=== PATIENT | female | born 1990 | race Caucasian/White ===

== ENCOUNTER 2020-07-19 09:26 | Outpatient (CLI) | payer BC, SELFPAY ==
--- NOTE | ~2020-07-19 | US_ITS ---
US abdomen complete DATE: 07/19/2020 09:51 INDICATION: Postprandial abdominal pain TECHNIQUE: Real-time imaging and Doppler analysis of the abdomen COMPARISON: None FINDINGS: No hepatic or pancreatic space-occupying mass lesion is evident. Normal hepatopedal portal venous flow direction. There is extensive shadowing from filling defects of the gallbladder consistent with cholelithiasis. Gallbladder wall thickness is within normal range. Negative sonographic Walker's sign. The common genaro e duct measures 4 mm. Normal splenic size. The left kidney measures 14 cm length. No left renal mass lesion or hydronephrosis. 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 Normal caliber of the abdominal aorta. The inferi or vena cava is unremarkable. IMPRESSION: Cholelithiasis Congenital absence of right kidney is reported Reviewed, dictated and finalized at [facility]. Reviewed, dictated and finalized at [facility].
== END 2020-07-19 09:27 | disposition home or self-care (01) ==
LOC: ANHIMG 09:29
PROVIDERS: PCP Family Medicine; Visit Provider Family Medicine
DX: K80.20 Calculus of gallbladder without cholecystitis without obstruction (principal)
CPT/HCPCS: 76700

== ENCOUNTER 2022-08-23 16:41 | Emergency (ER) | payer BC, SELFPAY ==
[2022-08-23 16:43] VITALS: BP 140/90; PULSE 115; RESP 18; TEMP 36.8; O2SAT 100
--- NOTE | 2022-08-23 17:24 | ED.GENADULT ---
HPI - General Adult General Chief complaint: Headache Stated complaint: headaches Time Seen by Provider: 08/23/22 16:59 Source: patient Mode of arrival: ambulatory Limitations: no limitations History of Present Illness HPI narrative: This is a 31 year old female with PMH of migraine who presents to the ED with chief complaint of headache x 1 week. Pt states the pain is bilateral and frontal. No sudden onset. States pain initially began after she woke up in bed. No worsening with exertion or position. Reports has been low grade and intermittent since onset. Minimal relief with excedrin. Denies fevers, chills, neck pain, blurry or double vision, abdominal pain, sore throat, cough, CP, SOB, urinary sxs. Related Data Allergies Allergy/AdvReac Type Severity Reaction Status Date / Time No Known Allergies Allergy Verified 08/23/22 16:42 Review of Systems Review of Systems: CONSTITUTIONAL: Denies fever, chills, or sweats. EYES: Denies visual changes, redness, or discharge. ENT: Denies rhinorrhea, congestion, sore throat, or otalgia. CARDIOVASCULAR: Denies chest pain, palpitations, or edema. RESPIRATORY: Denies cough or dyspnea. GASTROINTESTINAL: Denies abdominal pain, nausea, vomiting, or diarrhea. GENITOURINARY: Denies dysuria or hematuria. SKIN: Denies rash or itching. MUSCULOSKELETAL: Denies back pain, joint pain, or myalgia. NEUROLOGIC: See HPI PSYCHIATRIC: Denies anxiety or depression. COUNTS INCLUDE 234 BEDS AT THE [facility] Past Medical History Medical History Cholelithiasis Surgical History Surgical History History of cholecystectomy Family History Family History Mother Family history of thyroid disease Grandparent Family history of lung cancer Social History Social History Smoking status: Never smoker Second hand tobacco smoke exposure: No Alcohol intake: never Substance use: never Substance use type: does not use Lack of Transportation: No Lack of Food: Never True Current Housing: I Have Housing Concerned About Future Housing: No Difficulty Paying Gas/Electric Bills: No Difficulty Paying for Meds: No Currently Unemployed: No Education: High School Diploma/GED Difficulty w/ Childcare or Family Care: No Living arrangements: with family Occupation/Education: occupation Gender identity (if verbalized by the patient): Female Sexual Orientation (if Verbalized by the Patient): Straight or Heterosexual Spiritual care concerns: No Agree to blood products: Yes Exam Narrative: GENERAL: Well-appearing, well-nourished, and in no acute distress. HEAD: Normocephalic, atraumatic. Mild tenderness to the bilateral frontal scalp. EYES: PERRLA and EOMI. ENT: Nares clear, no rhinorrhea or epistaxis. Mucous membranes moist. Oropharynx without tonsillar hypertrophy exudate or other lesions. NECK: Supple. No adenopathy or masses. CHEST: No respiratory distress. Clear to auscultation. No wheezes rales or rhonchi HEART: Regular rate and rhythm. No murmur heard. Normal peripheral pulses. ABDOMEN: Soft, nontender, nondistended, normal active bowel sounds. MSK: Normal range of motion. No edema. SKIN: Warm, dry, no rash. NEURO: Alert and oriented x3. No focal deficits. Cranial nerves II through XII intact. PSYCH: Normal mood and affect. Course Course Emergency Course: Reevaluation: Patient feeling much better and is ready to go home. Vital Signs Vital signs: Vital Signs Temperature 98.3 F 08/23/22 16:43 Pulse Rate 115 H 08/23/22 16:43 Respiratory Rate 18 08/23/22 16:43 Blood Pressure 140/90 08/23/22 16:43 Pulse Oximetry 100 08/23/22 16:43 Oxygen Delivery Room Air 08/23/22 16:43 Temperature 98.3 F 08/23/22 16:43 Pulse Rate 83 08/23/22 18:31 Re
[2022-08-23] MEDS: SODIUM CHLORIDE 0.9% IV 1,000 ML 999 ML IV CONT (17:35)
[2022-08-23] MEDS: PROCHLORPERAZINE EDISYLATE 10 MG/2 ML VIAL IV PUSH (17:36)
[2022-08-23] MEDS: diphenhydrAMINE HCl INJ 50 MG/ML VIAL 25 MG IV PUSH (17:36)
[2022-08-23] MEDS: KETOROLAC 15 MG/ML VIAL (*BKC) IV PUSH (17:36)
[2022-08-23 17:40] LABS: Basophils Percent Auto 0.3 % (0.2-1.2); Eosinophils Absolute Auto 0.1 K/mm3 (0-0.3); Eosinophils Percent Auto 1.1 % (0-4.4); Hematocrit 38.1 % (37.0-47.0); Hemoglobin 12.5 g/dL (12.0-15.0); Immature Granulocyte Absolute 0.03 K/mm3 (0.00-0.031); Immature Granulocyte Percent A 0.3 % (0-0.5); Lymphocytes Absolute Auto 2.43 K/mm3 (0.9-3.2); Lymphocytes Percent Auto 26.3 % (18.3-44.2); Mean Corpuscular HGB Conc 32.8 g/dl (32-36); Mean Corpuscular Hemoglobin 29.3 pg (26-34); Mean Corpuscular Volume 89.4 fl (80-100); Monocytes Absolute Auto 0.7 K/mm3 (0.1-0.6); Monocytes Percent Auto 7.1 % (2.6-8.5); Neutrophils Percent Auto 64.9 % (45.5-73.1); Platelet Count Result 280 k/mm3 (150-375); Red Blood Count 4.26 M/mm3 (4.2-5.4); Red Cell Distribution Width 13.6 % (11.5-14.5); White Blood Count 9.2 K/mm3 (4.5-10.0)
[2022-08-23 17:50] LABS: Alanine Aminotransferase 37 U/L (6-35); Albumin Level 4.5 g/dL (3.5-5.1); Alkaline Phosphatase 70 U/L (38-126); Anion Gap 9 mmol/L (8-16); Aspartate Amino Transferase 41 U/L (14-36); Bilirubin,Total 0.4 mg/dL (0.2-1.3); Blood Urea Nitrogen 6 mg/dL (7-17); Calcium 8.7 mg/dL (8.4-10.2); Carbon Dioxide 29 mmol/L (22-30); Chloride 101 mmol/L (98-107); Estimated CRCL calculation 120 ml/min; Estimated Glomerular Filt Rate > 60; Glucose 110 mg/dL (65-110); Potassium 3.9 mmol/L (3.4-5.0); Sodium 139 mmol/L (137-145)
[2022-08-23 18:31] VITALS: BP 124/83; PULSE 83; O2SAT 100
== END 2022-08-23 18:38 | disposition home or self-care (01) ==
PROVIDERS: Emergency Provider Physician Assistant; PCP Family Medicine
DX: G43.909 Migraine, unspecified, not intractable, without status migrainosus (principal); Z90.49 Acquired absence of other specified parts of digestive tract
CPT/HCPCS: 36415; 80053; 81025; 85025; 96361; 96374; 96375; 99284; J0780; J1200; J1885; J7030

== ENCOUNTER 2023-07-31 08:10 | Day surgery (SDC) | payer BC, SELFPAY ==
[2023-07-18 13:13] VITALS: BMI 29.6
[2023-07-31 11:11] VITALS: BP 133/94; PULSE 78; RESP 16; TEMP 36.4; O2SAT 100; BMI 31.1
--- NOTE | 2023-07-31 11:12 | WPDANESEPPF ---
Anes - Initial Pre Proc Eval Procedure: Operation Date: 07/31/23 12:00 Proposed Procedures p Colonoscopy - Vinh Pedroza MD Date/Time: 07/31/23 11:12 Surgeon: Vinh Pedroza MD Pre Op Diagnosis: RLQP, Melena, CIBH, Other fecal abnormalities Patient Data Age: 32 Gender: F Height: 1.75 m Weight: 91 kg Allergies Allergy/AdvReac Type Severity Reaction Status Date / Time venom-wasp Allergy Anaphylaxis Verified 07/31/23 11:10 Home Medications Medication Instructions Recorded Confirmed Type ergocalciferol (vitamin D2) 1,250 1,250 mcg PO WEEKLY 90 days #13 07/20/22 07/31/23 Rx mcg (50,000 unit) capsule caps dicyclomine 10 mg capsule 20 mg PO TID #30 caps 07/15/23 07/31/23 Rx epinephrine 0.3 mg/0.3 mL 0.3 mg (0.3 mL) IM ONCE PRN 07/15/23 07/31/23 Rx injection, auto-injector (EpiPen anaphylaxis #2 ea 2-Pb) Patient hx anesthesia problems: none Family hx anesthesia problems: none Results Review: All pre-operative results and documents have been reviewed as part of the pre-operative evaluation. [facility] Past Medical History Medical History (Updated 07/15/23 @ 11:27 by Jodi Cruz APRN) Bicornuate uterus Cholelithiasis Unilateral renal agenesis Surgical History Surgical History (Updated 07/15/23 @ 11:27 by Jodi Cruz APRN) History of cholecystectomy Family History Family History Mother Family history of thyroid disease Grandparent Family history of lung cancer Social History Social History Smoking status: Never smoker Second hand tobacco smoke exposure: No Alcohol intake: current Substance use: never Substance use type: does not use Lack of Transportation: No Lack of Food: Never True Current Housing: I Have Housing Concerned About Future Housing: No Difficulty Paying Gas/Electric Bills: No Difficulty Paying for Meds: No Currently Unemployed: No Education: High School Diploma/GED Difficulty w/ Childcare or Family Care: No Living arrangements: with family Occupation/Education: occupation Gender identity (if verbalized by the patient): Female Sexual Orientation (if Verbalized by the Patient): Straight or Heterosexual Spiritual care concerns: No Agree to blood products: Yes Anes - Eval Final PreProcedure Day of Procedure 07/31/23 11:12 Patient weight: obese Heart: regular rate and rhythm Lungs: clear to auscultation Airway: Mallampati scale class II Neurological: alert and oriented Last oral intake: >/= 8 hours ASA classification: II Emergent: no Anesthetic plan: proceed Anesthesia type and monitoring: general GIVS and standard monitoring Results Review: All pre-operative results and documents have been reviewed as part of the pre-operative evaluation. Informed Consent: The patient's anesthetic plan and its attendant risks and benefits were discussed with the patient/family/POA. Questions were solicited and answers provided to the satisfaction of the patient/family/POA.
[2023-07-31] MEDS: LACTATED RINGERS 1,000 ML 150 ML IV CONT (11:31)
--- NOTE | 2023-07-31 11:31 | WPDHPUPDATE1 ---
History and Physical Update Update Date/Time: 07/31/23 11:31 History and Physical has been reviewed, including an updated exam of the patient. There are NO changes in the patient's condition. Risks, benefits, and alternatives have been discussed and questions answered. Patient agrees to proceed with procedure.
[2023-07-31 11:51] VITALS: BP 121/81; PULSE 72; RESP 22; O2SAT 100
[2023-07-31 12:01] VITALS: BP 110/72; PULSE 67; RESP 14; O2SAT 100
[2023-07-31 12:11] VITALS: BP 121/84; PULSE 72; RESP 22; O2SAT 100
== END 2023-07-31 12:15 | disposition home or self-care (01) ==
PROVIDERS: PCP Family Medicine; Visit Provider Internal Medicine Gastroenterology
PROC: 0DJD8ZZ Inspection of Lower Intestinal Tract, Via Natural or Artificial Opening Endoscopic (ICD-10-PCS; CPT 45378; principal; 2023-07-31 12:00)
DX: K64.8 Other hemorrhoids (principal); E66.9 Obesity, unspecified; Z68.31 Body mass index [BMI] 31.0-31.9, adult
CPT/HCPCS: 45378; J2405; J2704; J7120

== ENCOUNTER 2023-08-15 14:37 | Outpatient (CLI) | payer BC, SELFPAY ==
--- NOTE | ~2023-08-15 | CT_ITS ---
EXAMINATION: CT abdomen pelvis w con DATE: 08/15/2023 15:16 INDICATION: Right lower quadrant abdominal pain. TECHNIQUE: Computed tomography (CT) of the abdomen and pelvis was performed with 100 mL Omnipaque 350 intravenous contrast. Automated exposure control and iterative reconstruction technique were employe d. The dose-length product was 739.34 mGy-cm. COMPARISON: None. FINDINGS: The visualized portions of the lung bases are clear without pneumonia or pleural effusion. The heart size is normal. No pericardial effusion. The liver is normal. There are changes of cholecys tectomy. The spleen, pancreas, adrenal glands, and left kidney are normal. Right kidney is absent. Th e uterus is either bicornuate or didelphys. The appendix is normal. There are no pathologically enlar ged lymph nodes. There is no free intraperitoneal fluid. There is mild thoracic and lumbar spondylosi s. IMPRESSION: 1. No etiology for the patient's symptoms. Reviewed, dictated and finalized at [facility].
== END 2023-08-15 14:38 | disposition home or self-care (01) ==
PROVIDERS: PCP Family Medicine; Visit Provider Nurse Practitioner
DX: R10.31 Right lower quadrant pain (principal); R19.5 Other fecal abnormalities; R19.4 Change in bowel habit
CPT/HCPCS: 74177; Q9967